=== PATIENT | female | born 2000 ===

== ENCOUNTER 2018-11-30 22:11 | Emergency (ER) | payer OTHER ==
[2018-12-01 00:46] LABS: ABSOLUTE EOSINOPHILS # (AUTO) 0.1 10^3/uL (0.0-0.6); ABSOLUTE LYMPHOCYTES (AUTO) 2.4 10^3/uL (0.5-4.7); ABSOLUTE MONOCYTES (AUTO) 0.7 10^3/uL (0.1-1.4); BASOPHILS % (AUTO) 0.3 % (0-2); EOSINOPHILS % (AUTO) 0.9 % (0-6); HEMATOCRIT 40.5 % (36.0-47.0); HEMOGLOBIN 14.2 g/dL (12.0-15.5); LYMPHOCYTES % (AUTO) 23.3 % (13-45); MEAN CORPUSCULAR HEMOGLOBIN 32.4 pg (27.0-33.4); MEAN CORPUSCULAR HGB CONC 34.9 g/dL (32.0-36.0); MEAN CORPUSCULAR VOLUME 93 fl (80-97); MONOCYTES % (AUTO) 6.5 % (3-13); PLATELET COUNT 292 10^3/uL (150-450); RED BLOOD COUNT 4.37 10^6/uL (3.72-5.28); TOTAL CELLS COUNTED % (AUTO) 100 %; WHITE BLOOD COUNT 10.2 10^3/uL (4.0-10.5)
--- NOTE | 2018-12-01 01:27 | RADIOLOGY REPORT (SQ) ---
EXAM DESCRIPTION: US TRANSVAGINAL COMPLETED DATE/TME: 11/30/2018 23:18 CLINICAL HISTORY: 18 years, Female, vaginal bleeding COMPARISON: None. TECHNIQUE: Transvaginal sonographic images of the pelvis in a patient LIMITATIONS: None. FINDINGS: The uterus measures 11.2 x 6.8 x 8.6 cm. The myometrium is homogenous. Intrauterine gestational sac with yolk sac and pole. Heart tones obtained at 168 bpm. Left ovary is not well visualized likely due to its position in the pelvis. The right ovary measures 3.2 x 2.3 x 2.5 cm. Normal flow to the right ovary. No solid adnexal mass. No free fluid. Current ultrasound age is 8 weeks 4 days IMPRESSION: Single live intrauterine gestation with ultrasound age 8 weeks 4 days. Nonemergent follow-up recommended copyright 2010 [employer]- All Rights Reserved
[2018-12-01] MEDS ORDERED: ACETAMINOPHEN 325 MG TABLET PO ONE (01:32)
--- NOTE | 2018-12-01 01:34 | ER Document Report ---
ED General - General Chief Complaint: Vag Bleeding, +preg <12wks Stated Complaint: CRAMPING AND VAGINAL BLEEDING Time Seen by Provider: 12/01/18 01:18 Primary Care Provider: [facility] [Provider Group] - Follow up tomorrow - [facility] Notes: Patient is a 18-year-old female that presents to the emergency department for chief complaint of vaginal bleeding and pelvic pain. Patient is G2, P1 at about 8 weeks gestational age by dates. She reports noticing bright red vaginal bleeding that she describes as minimal this evening with one larger clot. She states this evening she started having some suprapubic cramping that she describes to feel like menstrual cramps. It is intermittent. She states it is moderately uncomfortable. She took a Tylenol yesterday but has not had anything since late afternoon on 11/30. Patient has a history of 1 without complications. She has not yet established with [facility] for her current . She does report nausea with no vomiting. She denies any diarrhea or constipation. She denies any vaginal discharge. Past Medical History: Negative Past Surgical History: Social History: Denies drugs alcohol and tobacco Family History: Reviewed and noncontributory for presenting illness Allergies: Reviewed, see documented allergy list. REVIEW OF SYSTEMS: CONSTITUTIONAL : No fever No chills No diaphoresis No recent illness EENT: No vision changes No congestion No sore throat CARDIOVASCULAR: No chest pain No palpitations RESPIRATORY: No shortness of breath No cough No difficulty breathing GASTROINTESTINAL: abdominal pain nausea No vomiting No diarrhea GENITOURINARY: Vaginal bleeding No dysuria No hematuria No difficulty urinating MUSCULOSKELETAL: No back pain No leg pain No arm pain SKIN: No rashes No lesions LYMPHATIC: No swollen, enlarged glands. NEUROLOGICAL: No lightheadedness No headache No weakness No paresthesias PSYCHIATRIC: No anxiety No depression PHYSICAL EXAMINATION: Vital signs reviewed, nursing noted reviewed. GENERAL: Well-appearing, well-nourished and in no acute distress. HEAD: Atraumatic, normocephalic. EYES: Eyes appear normal, extraocular movements intact, sclera anicteric, conjunctiva are normal. ENT: nares patent, oropharynx clear without exudates. Moist mucous membranes. NECK: Normal range of motion, supple without lymphadenopathy LUNGS: Breath sounds clear to auscultation bilaterally and equal. No wheezes rales or rhonchi. HEART: Regular rate and rhythm without murmurs ABDOMEN: Soft, nontender, normoactive bowel sounds. No rebound, guarding, or rigidity. No masses appreciated. EXTREMITIES: Nontender, good range of motion, no pitting or edema. NEUROLOGICAL: No focal neurological deficits. Moves all extremities spontaneously Motor and sensory grossly intact on exam. PSYCH: Normal mood, normal affect. SKIN: Warm, Dry, normal turgor, no rashes or lesions noted on exposed skin - Related Data Allergies/Adverse Reactions: No Known Allergies Allergy (Verified 12/01/18 00:47) Past Medical History - General Last Menstrual Period: 09/30/18 - Social History Smoking Status: Never Smoker Frequency of alcohol use: None Drug Abuse: None Family History: Reviewed & Not Pertinent Patient has suicidal ideation: No Patient has homicidal ideation: No Renal/ Medical History: Denies: Hx Peritoneal Dialysis Past Surgical History: Reports: Hx Section Physical Exam - Vital signs Vitals: Temp Pulse Resp BP Pulse Ox 98.3 F 106 H 20 133/67 H 97 11/30/18 22:17 11/30/18 22:17 11/30/18 22:17 11/30/18 22:17 11/30/18 22:17 Course - Re-evaluation Re-evalutation: 12/01/18 01:34 Vitals reviewed. Nursing notes reviewed. Patient is well-appearing and in no acute distress. She was ordered Tylenol for pain. Ultrasound shows single live intrauterine gestation at 8 weeks and 4 days with a heart rate of 168. Patient is not acutely anemic on lab work. 12/01/18 02:45 She is Rh+ and not requiring RhoGam. Urinalysis negative for infection, urine culture has been sent. Patient is otherwise well-appearing. She had improvement of symptoms after Tylenol. She will follow closely with [facility] for reevaluation. She was counseled on return precautions and verbalized understanding. Laboratory 12/01/18 12/01/18 12/01/18 00:12 00:36 00:36 WBC 10.2 RBC 4.37 Hgb 14.2 Hct 40.5 MCV 93 MCH 32.4 MCHC 34.9 RDW 12.0 Plt Count 292 Seg Neutrophils % 69.0 Lymphocytes % 23.3 Monocytes % 6.5 Eosinophils % 0.9 Basophils % 0.3 Absolute Neutrophils 7.0 Absolute Lymphocytes 2.4 Absolute Monocytes 0.7 Absolute Eosinophils 0.1 Absolute Basophils 0.0 Beta HCG, Quant 854186.00 H Total Beta HCG POSITIVE Urine Color YELLOW Urine Appearance CLOUDY Urine pH 6.0 Ur Specific [place] 1.026 Urine Protein NEGATIVE Urine Glucose (UA) NEGATIVE Urine Ketones NEGATIVE Urine Blood LARGE H Urine Nitrite NEGATIVE Urine Bilirubin NEGATIVE Urine Urobilinogen NEGATIVE Ur Leukocyte Esterase SMALL H Urine WBC (Auto) 5 Urine RBC (Auto) 2 Urine Bacteria (Auto) 1+ Squamous Epi Cells Auto 23 Urine Mucus (Auto) MANY Urine Ascorbic Acid NEGATIVE Blood Type Rhogam Indicated 12/01/18 01:38 WBC RBC Hgb Hct MCV MCH MCHC RDW Plt Count Seg Neutrophils % Lymphocytes % Monocytes % Eosinophils % Basophils % Absolute Neutrophils Absolute Lymphocytes Absolute Monocytes Absolute Eosinophils Absolute Basophils Beta HCG, Quant Total Beta HCG Urine Color Urine Appearance Urine pH Ur Specific [place] Urine Protein Urine Glucose (UA) Urine Ketones Urine Blood Urine Nitrite Urine Bilirubin Urine Urobilinogen Ur Leukocyte Esterase Urine WBC (Auto) Urine RBC (Auto) Urine Bacteria (Auto) Squamous Epi Cells Auto Urine Mucus (Auto) Urine Ascorbic Acid Blood Type AB POSITIVE Rhogam Indicated RHOGAM NOT INDICATED Obstetrics Ultrasound 11/30/18 23:18 IMPRESSION: Single live intrauterine gestation with ultrasound age 8 weeks 4 days. Nonemergent follow-up recommended copyright 2011 [employer]- All Rights Reserved - Vital Signs Vital signs: Temp Pulse Resp BP Pulse Ox 98.3 F 106 H 20 133/67 H 97 11/30/18 22:17 11/30/18 22:17 11/30/18 22:17 11/30/18 22:17 11/30/18 22:17 - Laboratory Result Diagrams: 12/01/18 00:36 Laboratory results interpreted by me: 12/01/18 12/01/18 00:12 00:36 Beta HCG, Quant 185955.00 H Urine Blood LARGE H Ur Leukocyte Esterase SMALL H Discharge - Discharge Clinical Impression: Threatened miscarriage Condition: Stable Disposition: HOME, SELF-CARE Instructions: Threatened Miscarriage ([facility]) Additional Instructions: Please return to the emergency department if you have any worsening, or concern of your symptoms. Please return to the emergency department if you develop lightheadedness, chest pain, difficulty breathing, severe abdominal pain, or ongoing vomiting. Please follow-up with your primary care physician in 2-3 days and any other recommended physicians. If prescribed, take all medications as directed. If you have any questions or concerns do not hesitate to return the emergency department for evaluation. Return to the emergency room if you are bleeding through a heavy menstrual pad every hour for 3 hours. Contact your [facility] tomorrow morning to schedule a follow-up appointment in the next 1 to 2 days Referrals: [facility] [Provider Group] - Follow up tomorrow
[2018-12-01 01:59] LABS: APPEARANCE,URINE CLOUDY; BILIRUBIN,URINE NEGATIVE (NEGATIVE); COLOR,URINE YELLOW; GLUCOSE, URINE NEGATIVE (NEGATIVE); KETONES,URINE NEGATIVE (NEGATIVE); LEUKOCYTE ESTERASE,URINE SMALL (NEGATIVE); NITRITE,URINE NEGATIVE (NEGATIVE); PROTEIN,URINE NEGATIVE (NEGATIVE); URINE SPECIFIC GRAVITY 1.026; UROBILINOGEN,URINE NEGATIVE mg/dL (<2.0)
[2018-12-01 02:54] VITALS: BP 131/76
== END 2018-12-01 02:55 | disposition home or self-care (01) ==
LOC: ER 22:11
DX: O20.0 Threatened abortion (principal); O26.891 Other specified pregnancy related conditions, first trimester; R10.30 Lower abdominal pain, unspecified; R11.0 Nausea; Z3A.08 8 weeks gestation of pregnancy
CPT/HCPCS: 36415; 76817; 81001; 84702; 85025; 86900; 86901; 87086; 87088; 87186; 99284